=== PATIENT | female | born 1930 | race Caucasian/White ===

== ENCOUNTER 2021-03-11 17:04 | Inpatient (IN) ==
--- NOTE | 2021-03-11 18:23 | XRay Report ---
XR elbow RT min 3V routine CLINICAL HISTORY: Right elbow pain following fall. COMPARISON: None FINDINGS: Alignment of the right elbow is anatomic. No acute fracture. There is no evidence for join t effusion. IMPRESSION: No acute fracture or joint effusion of the right elbow. ACT 112: Negative or not required by law. Electronically signed by: Nishant Figueredo M.D. 03/11/2021 6:22 PM
--- NOTE | 2021-03-11 18:23 | XRay Report ---
XR shoulder RT min 2V routine CLINICAL HISTORY: Right shoulder pain following fall. COMPARISON: None FINDINGS: Alignment of the right acromioclavicular and glenohumeral joints is anatomic. Note is made of an acute impacted displaced right humeral neck fracture. The degree of displacement is difficult to assess on this examination. 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 IMPRESSION: Acute impacted displaced right humeral neck fracture. ACT 112: Negative or not required by law. Electronically signed by: Nishant Figueredo M.D. 03/11/2021 6:21 PM
--- NOTE | 2021-03-11 18:41 | XRay Report ---
XR hip RT min 2V CLINICAL HISTORY: Right leg pain following fall. COMPARISON: None FINDINGS: Note is made of an acute impacted subcapital right femoral neck fracture. Fracture is like ly mildly displaced. Penetration is suboptimal on the crosstable lateral projection. IMPRESSION: Acute impacted mildly displaced subcapital right femoral neck fracture. ACT 112: Negative or not required by law. Electronically signed by: Nishant Figueredo M.D. 03/11/2021 6:39 PM
[2021-03-11] MEDS ORDERED: MoRPHine SULFATE 4 MG/ML 1 ML CARP\\VIAL IV PRN (19:17)
[2021-03-11] MEDS ORDERED: ACETAMINOPHEN 65 ML IV ONE (19:17)
[2021-03-11] MEDS ORDERED: SODIUM CHLORIDE 0.9% 1000ML 1,000 ML IV SCH (19:30)
[2021-03-11 19:54] LABS: Basophils # (auto) 0.02 K/uL (0-0.2); Basophils % (auto) 0.1 %; Eosinophils # (auto) 0.02 K/uL (0-0.5); Eosinophils % (auto) 0.1 %; Hematocrit (blood only) 43.6 % (37-47); Hemoglobin 15.5 g/dL (12.0-16.0); Immature Granulocytes % (auto) 0.5 %; Mean Corpuscular Hemoglobin 30.6 pg (25-34); Mean Corpuscular Hgb Conc 35.6 g/dL (32-36); Mean Platelet Volume 10.4 fL (7.4-10.4); Monocytes # (auto) 1.02 K/uL (0.11-0.59); Monocytes % (auto) 5.1 %; Neutrophils # (auto) 17.61 K/uL (1.4-6.5); Neutrophils % (auto) 88.2 %; Platelet Count 254 K/uL (130-400); RDW Coefficient of Variation 13.5 % (11.5-14.5); RDW Standard Deviation 42.2 fL (36.4-46.3); Red Blood Count 5.07 M/uL (4.2-5.4); White Blood Count 19.97 K/uL (4.8-10.8)
--- NOTE | 2021-03-11 19:54 | Emergency Department Note ---
History of Present Illness General Chief complaint: Fall Stated complaint: FALL - RT SHOULDER/ELBOW PAIN - LEG WEAKNESS Time Seen by Provider: 03/11/21 19:07 History of Present Illness Maximum Pain Intensity: 7 This is an 89-year-old female presenting to the emergency department for evalu ation of injuries after a fall that occurred just prior to arrival. The patient was walking outside, which is quite common for her as she typically walks 1 mile or more on a daily basis. Evidently there was a large stick that was on the road and the patient attempted to move it. When she threw it off the road she lost her balance, and fell onto her right side arm, elbow, and hip. She was not easily able to ambulate after the injury. She did not strike her head or lose consciousness. She is not on blood thinners. No neck pain, chest pain, or abdominal pain. She rates her discomfort a 7/10. Home Medications Medication Instructions Recorded Confirmed Type atenolol 100 mg tablet 100 mg PO QPM 03/11/21 03/11/21 History atorvastatin 20 mg tablet 20 mg PO QAM 03/11/21 03/11/21 History hydrochlorothiazide 25 mg tablet 25 mg PO QPM 03/11/21 03/11/21 History levothyroxine 75 mcg tablet 75 mcg PO QAM 03/11/21 03/11/21 History Allergies Allergy/AdvReac Type Severity Reaction Status Date / Time No Known Allergies Allergy Verified 03/11/21 19:34 Past Med/Surg History Medical History Hypertension Hypothyroid Surgical History No significant past surgical history Social History Smoking Status: Never smoker Feels Safe at Home: Yes Review of Systems A total of 10 systems reviewed and were otherwise negative Physical Exam Vital Signs Vital Signs - 24 hr 03/11/21 17:10 03/11/21 19:21 Temperature 36.4 C L Temperature Source Oral Pulse Rate 61 Pulse Rate [Finger] 70 Pulse Rhythm Regular Pulse Strength Normal Respiratory Rate 20 18 Respiratory Effort / Characteristics Non-Labored Spontaneous Respiratory Depth Normal Respiratory Pattern Regular Blood Pressure 179/78 H Blood Pressure [Left Arm] 174/95 H Blood Pressure Mean 111 Blood Pressure Mean [Left Arm] 121 Blood Pressure Position Sitting Pulse Oximetry 97 94 Oxygen Delivery Method Room Air Room Air Sepsis Recent Fever Within 48 Hours No Sepsis New/Unexplained Change in Mental Status N/A Sepsis Action Taken by Nursing No Action Required VITALS: Vitals are noted on the nurse's note and reviewed by myself. Vital signs stable. GENERAL: White female who is mildly uncomfortable. She is pleasant and cooperative. HEAD: Normocephalic atraumatic. NECK: Supple without nuchal rigidity. No lymphadenopathy. No thyromegaly. Cervical spine is nontender. HEART: Regular rate and rhythm without murmurs gallops or rubs. LUNGS: Clear to auscultation bilaterally without wheezes, rales or rhonchi. No retractions or accessory muscle use. MUSCULOSKELETAL: Tenderness noted to the right arm and right hip. Decreased range of motion in these areas. Neurovascular status appears intact. Range of motion causes significant increase in discomfort when attempted. NEURO: Patient was alert and oriented to person place and time. CN II through XII grossly intact. Course Administered Medications Sodium Chloride (Nss 1000ml) 1,000 mls @ 150 mls/hr IV .[id number] EHSAN Stop: 03/12/21 02:09 Last Admin: 03/11/21 20:00 Dose: 150 mls/hr Documented by: [id number] Morphine Sulfate (Morphine Sulfate 2 Mg/Ml Carp) 2 mg IV Q1H PRN PRN Reason: Moderate Pain (Rating 3,4,5,6) Stop: 03/25/21 19:16 Last Admin: 03/11/21 20:10 Dose: 2 mg Documented by: [id number] Discontinued Medications Acetaminophen (Ofirmev) 65 mls @ 200 mls/hr IV NOW ONE; Protocol Stop: 03/11/21 19:36 Last Infusion: 03/11/21 20:14 Dose: 60 mls/hr Documented by: [id number] Admin: 03/11/21 19:50 Dose: 200 mls/hr Documented by: [id number] Medical Decision Making Differential Diagnosis Differential diagnosis includes, but is not limited to: Sprain, strain, fracture, dislocation, subluxation, contusion, and others Laboratory Data Result diagrams: 03/11/21 19:47 03/11/21 19:47 Lab Results 03/11/21 03/11/2103/11/21 Range/Units 19:19 19:19 19:47 WBC (4.8-10.8) K/uL RBC (4.2-5.4) M/uL Hgb (12.0-16.0) g/dL Hct (37-47) % MCV (80-100) fL MCH (25-34) pg MCHC (32-36) g/dL RDW Std Deviation (36.4-46.3) fL RDW Coeff of Digna (11.5-14.5) % Plt Count (130-400) K/uL MPV (7.4-10.4) fL Immature Gran % (Auto) % Neut % (Auto) % Lymph % (Auto) % [place] % (Auto) % Eos % (Auto) % Baso % (Auto) % Neut # (Auto) (1.4-6.5) K/uL Lymph # (Auto) (1.2-3.4) K/uL [place] # (Auto) (0.11-0.59) K/uL Eos # (Auto) (0-0.5) K/uL Baso # (Auto) (0-0.2) K/uL Immature Gran # (Auto) (0.00-0.02) K/uL PT (9.0-12.0) Seconds INR (0.9-1.1) APTT (21.0-31.0) Seconds PTT Ratio Sodium (136-145) mmol/L Potassium (3.5-5.1) mmol/L Chloride (98-107) mmol/L Carbon Dioxide (21-32) mmol/L Anion Gap (3-11) BUN (7-18) mg/dl Creatinine (0.6-1.2) mg/dl Est Cr Clr Drug Dosing Est GFR ( Amer) ml/min Est GFR (Non-Af Amer) ml/min BUN/Creatinine Ratio (10-20) Glucose (70-99) mg/dl Calcium (8.5-10.1) mg/dl Total Bilirubin (0.2-1) mg/dl AST (15-37) U/L ALT (12-78) U/L Alkaline Phosphatase (45-117) U/L Total Protein (6.4-8.2) gm/dl Albumin (3.4-5.0) gm/dl Globulin (2.5-4.0) gm/dl Albumin/Globulin Ratio (0.9-2) Urine Color Urine Appearance (Clear) Urine pH (4.5-7.5) Ur Specific Dexter (1.000-1.030) Urine Protein (Negative) Urine Glucose (UA) (Negative) Urine Ketones (Negative) Urine Blood (Negative) Urine Nitrite (Negative) Urine Bilirubin (Negative) Urine Urobilinogen (Negative) Ur Leukocyte Esterase (Negative) COVID-19 Eval Order Covid19 at [facility] SARS-CoV-2 (PCR) NEGATIVE (Negative) Blood Type O Positive Antibody Screen NEGATIVE 03/11/21 03/11/21 03/11/21 Range/Units 19:47 19:47 19:47 WBC 19.97 H (4.8-10.8) K/uL RBC 5.07 (4.2-5.4) M/uL Hgb 15.5 (12.0-16.0) g/dL Hct 43.6 (37-47) % MCV 86.0 (80-100) fL MCH 30.6 (25-34) pg MCHC 35.6 (32-36) g/dL RDW Std Deviation 42.2 (36.4-46.3) fL RDW Coeff of Digna 13.5 (11.5-14.5) % Plt Count 254 (130-400) K/uL MPV 10.4 (7.4-10.4) fL Immature Gran % (Auto) 0.5 % Neut % (Auto) 88.2 % Lymph % (Auto) 6.0 % [place] % (Auto) 5.1 % Eos % (Auto) 0.1 % Baso % (Auto) 0.1 % Neut # (Auto) 17.61 H (1.4-6.5) K/uL Lymph # (Auto) 1.20 (1.2-3.4) K/uL [place] # (Auto) 1.02 H (0.11-0.59) K/uL Eos # (Auto) 0.02 (0-0.5) K/uL Baso # (Auto) 0.02 (0-0.2) K/uL Immature Gran # (Auto) 0.10 H (0.00-0.02) K/uL PT 10.2 (9.0-12.0) Seconds INR 1.0 (0.9-1.1) APTT 24.1 (21.0-31.0) Seconds PTT Ratio 0.9 Sodium 135 L (136-145) mmol/L Potassium 3.5 (3.5-5.1) mmol/L Chloride 101 (98-107) mmol/L Carbon Dioxide 28 (21-32) mmol/L Anion Gap 6.0 (3-11) BUN 21 H (7-18) mg/dl Creatinine 0.82 (0.6-1.2) mg/dl Est Cr Clr Drug Dosing Not Reportable Est GFR ( Amer) 73.5 ml/min Est GFR (Non-Af Amer) 63.4 ml/min BUN/Creatinine Ratio 25.1 H (10-20) Glucose 143 H (70-99) mg/dl Calcium 9.5 (8.5-10.1) mg/dl Total Bilirubin 0.5 (0.2-1) mg/dl AST 29 (15-37) U/L ALT 47 (12-78) U/L Alkaline Phosphatase 68 (45-117) U/L Total Protein 7.8 (6.4-8.2) gm/dl Albumin 4.3 (3.4-5.0) gm/dl Globulin 3.5 (2.5-4.0) gm/dl Albumin/Globulin Ratio 1.2 (0.9-2) Urine Color Urine Appearance (Clear) Urine pH (4.5-7.5) Ur Specific Dexter (1.000-1.030) Urine Protein (Negative) Urine Glucose (UA) (Negative) Urine Ketones (Negative) Urine Blood (Negative) Urine Nitrite (Negative) Urine Bilirubin (Negative) Urine Urobilinogen (Negative) Ur Leukocyte Esterase (Negative) COVID-19 Eval Order SARS-CoV-2 (PCR) (Negative) Blood Type Antibody Screen 03/11/21 Range/Units 20:07 WBC (4.8-10.8) K/uL RBC (4.2-5.4) M/uL Hgb (12.0-16.0) g/dL Hct (37-47) % MCV (80-100) fL MCH (25-34) pg MCHC (32-36) g/dL RDW Std Deviation (36.4-46.3) fL RDW Coeff of Digna (11.5-14.5) % Plt Count (130-400) K/uL MPV (7.4-10.4) fL Immature Gran % (Auto) % Neut % (Auto) % Lymph % (Auto) % [place] % (Auto) % Eos % (Auto) % Baso % (Auto) % Neut # (Auto) (1.4-6.5) K/uL Lymph # (Auto) (1.2-3.4) K/uL [place] # (Auto) (0.11-0.59) K/uL Eos # (Auto) (0-0.5) K/uL Baso # (Auto) (0-0.2) K/uL Immature Gran # (Auto) (0.00-0.02) K/uL PT (9.0-12.0) Seconds INR (0.9-1.1) APTT (21.0-31.0) Seconds PTT Ratio Sodium (136-145) mmol/L Potassium (3.5-5.1) mmol/L Chloride (98-107) mmol/L Carbon Dioxide (21-32) mmol/L Anion Gap (3-11) BUN (7-18) mg/dl Creatinine (0.6-1.2) mg/dl Est Cr Clr Drug Dosing Est GFR ( Amer) ml/min Est GFR (Non-Af Amer) ml/min BUN/Creatinine Ratio (10-20) Glucose (70-99) mg/dl Calcium (8.5-10.1) mg/dl Total Bilirubin (0.2-1) mg/dl AST (15-37) U/L ALT (12-78) U/L Alkaline Phosphatase (45-117) U/L Total Protein (6.4-8.2) gm/dl Albumin (3.4-5.0) gm/dl Globulin (2.5-4.0) gm/dl Albumin/Globulin Ratio (0.9-2) Urine Color Yellow Urine Appearance Clear (Clear) Urine pH 6.0 (4.5-7.5) Ur Specific Dexter 1.015 (1.000-1.030) Urine Protein Negative (Negative) Urine Glucose (UA) Negative (Negative) Urine Ketones Negative (Negative) Urine Blood Negative (Negative) Urine Nitrite Negative (Negative) Urine Bilirubin Negative (Negative) Urine Urobilinogen Negative (Negative) Ur Leukocyte Esterase Negative (Negative) COVID-19 Eval Order SARS-CoV-2 (PCR) (Negative) Blood Type Antibody Screen Imaging Data Radiologist's Impression: Elbow X-Ray 03/11/21 17:14 XR elbow RT min 3V routine CLINICAL HISTORY: Right elbow pain following fall. COMPARISON: None FINDINGS: Alignment of the right elbow is anatomic. No acute fracture. There is no evidence for joint effusion. IMPRESSION: No acute fracture or joint effusion of the right elbow. ACT 112: Negative or not required by law. Electronically signed by: Nishant Figueredo M.D. 03/11/2021 6:22 PM Hip X-Ray 03/11/21 17:14 XR hip RT min 2V CLINICAL HISTORY: Right leg pain following fall. COMPARISON: None FINDINGS: Note is made of an acute impacted subcapital right femoral neck fracture. Fracture is likely mildly displaced. Penetration is suboptimal on the crosstable lateral projection. IMPRESSION: Acute impacted mildly displaced subcapital right femoral neck fracture. ACT 112: Negative or not required by law. Electronically signed by: Nishant Figueredo M.D. 03/11/2021 6:39 PM Shoulder X-Ray 03/11/21 17:14 XR shoulder RT min 2V routine CLINICAL HISTORY: Right shoulder pain following fall. COMPARISON: None FINDINGS: Alignment of the right acromioclavicular and glenohumeral joints is anatomic. Note is made of an acute impacted displaced right humeral neck fracture. The degree of displacement is difficult to assess on this examination. 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 IMPRESSION: Acute impacted displaced right humeral neck fracture. ACT 112: Negative or not required by law. Electronically signed by: Nishant Figueredo M.D. 03/11/2021 6:21 PM Chest X-Ray 03/11/21 19:18 XR chest 1V portable CLINICAL HISTORY: fall pain in right shoulder and hip. TECHNIQUE: Single frontal radiograph of the chest was obtained. Comparison: None available at the time of this dictation. FINDINGS: No lines and tubes are seen. The cardiomediastinal silhouette is normal. The lungs are clear. No evidence of pleural effusion or pneumothorax. Partial visualization of right humeral fracture, better seen on dedicated shoulder radiographs performed same day. IMPRESSION: No acute chest disease. Please see dedicated shoulder radiographs for findings of right humeral fracture. ACT 112: Negative or not required by law. Electronically signed by: Ravinder Villar M.D. 03/11/2021 8:41 PM ECG Data Attestation: I personally reviewed and interpreted this ECG as follows: Additional Comments: Normal sinus rhythm @70 bpm Moderate voltage criteria for LVH, may be normal variant Nonspecific ST & T wave abnormality No previous ECGs available MDM Narrative Physical exam and history were performed. Nursing notes, EMR, and Medication List were personally reviewed. Patient appears to have suffered mechanical fall with subsequent injuries to her right arm and right leg. The patient presents during a period of high ER volume and acuity. Nursing protocol orders have been performed and x-rays were available for my review upon patient arrival to her ER bed. The patient does appear to have a right humeral neck fracture as well as a proximal right femur fracture. IV access was established and labs were obtained. Covid swab was performed. The patient was given IV morphine for pain control and was gently hydrated with normal saline. Catheter was placed. The patient's blood work is as above and was reviewed. Her white blood cell count is just under 20,000 which is felt to be from stress and her injuries. She is not anemic with a hemoglobin of 15.5. INR is 1.0. Glucose is 143. Nguyen saminases are not diagnostic. Urine is without evidence of infection. She is blood type O+. Covid is negative. Case was discussed with the on-call orthopedist, Dr. Whitaker, who was able to review the images. Dr. Whitaker and his team will certainly follow with the patient. The case was discussed with the on-call hospitalist team who will evaluate the patient. Please see the hospitalist and orthopedic dictations for further patient course, plan, disposition. The chart was completed utilizing [employer] Voice Recognition Software. Grammatical errors, random word insertions, pronoun errors, and incomplete sentences are an occasional consequence of this system due to software limit ations, ambient noise, and hardware issues. Any formal questions or concerns about the content, text, or information contained within the body of this dictation should be directly addressed to the provider for clarification. . Impression & Plan Fall, Humerus fracture, Femur fracture, right Discharge Plan Visit Data Chief Complaint: Fall Stated Complaint: FALL - RT SHOULDER/ELBOW PAIN - LEG WEAKNESS ED Provider: Isaac Saldaña ED Midlevel Provider: Dwaine Antonio Discharge Problem: Fall, Humerus fracture, Femur fracture, right Patient Disposition: Home - Self-Care Condition: Good Forms Stand Alone Forms: [facility], Virtual Emergency Department, Important Visit Information Prescriptions Prescriptions: No Action atorvastatin 20 mg tablet 20 mg PO QAM RF: 0 atenolol 100 mg tablet 100 mg PO QPM RF: 0 levothyroxine 75 mcg tablet 75 mcg PO QAM RF: 0 hydrochlorothiazide 25 mg tablet 25 mg PO QPM RF: 0 Referrals Referrals: Susie White MD [Primary Care Provider] - Discharge Problem: Femur fracture, right Qualifiers: Encounter type: initial encounter
[2021-03-11 20:07] LABS: Partial Thromboplastin Ratio 0.9; Partial Thromboplastin Time 24.1 Seconds (21.0-31.0); Prothrombin Time 10.2 Seconds (9.0-12.0)
[2021-03-11] MEDS: MoRPHine SULFATE 2 MG/ML CARP IV PRN (20:10)
[2021-03-11 20:13] LABS: Alanine Aminotransferase 47 U/L (12-78); Albumin Level 4.3 gm/dl (3.4-5.0); Aspartate Aminotransferase 29 U/L (15-37); BUN Creatinine Ratio 25.1 (10-20); Blood Urea Nitrogen 21 mg/dl (7-18); Calcium 9.5 mg/dl (8.5-10.1); Carbon Dioxide 28 mmol/L (21-32); Chloride 101 mmol/L (98-107); Est GFR (African American) 73.5 ml/min; Est GFR (Non-African American) 63.4 ml/min; Glucose 143 mg/dl (70-99); Potassium 3.5 mmol/L (3.5-5.1); Sodium 135 mmol/L (136-145)
[2021-03-11 20:16] LABS: Albumin Globulin Ratio 1.2 (0.9-2); Alkaline Phosphatase 68 U/L (45-117); Bilirubin,Total 0.5 mg/dl (0.2-1); Globulin 3.5 gm/dl (2.5-4.0); Total Protein 7.8 gm/dl (6.4-8.2)
[2021-03-11 20:19] LABS: Appearance Urine Clear (Clear); Bilirubin Urine Negative (Negative); Blood Urine Negative (Negative); Color Urine Yellow; Glucose Urine UA Negative (Negative); Ketones Urine Negative (Negative); Leukocyte Esterase Urine Negative (Negative); Nitrite Urine Negative (Negative); Protein Urine Negative (Negative); Specific Gravity Urine 1.015 (1.000-1.030); Urobilinogen Urine Negative (Negative)
--- NOTE | 2021-03-11 20:43 | XRay Report ---
XR chest 1V portable CLINICAL HISTORY: fall pain in right shoulder and hip. TECHNIQUE: Single frontal radiograph of the chest was obtained. Comparison: None available at the time of this dictation. FINDINGS: No lines and tubes are seen. The cardiomediastinal silhouette is normal. The lungs are clear. No evid ence of pleural effusion or pneumothorax. Partial visualization of right humeral fracture, better see n on dedicated shoulder radiographs performed same day. IMPRESSION: No acute chest disease. Please see dedicated shoulder radiographs for findings of right humeral fract ure. ACT 112: Negative or not required by law. Electronically signed by: Ravinder Villar M.D. 03/11/2021 8:41 PM
--- NOTE | 2021-03-11 21:32 | History & Physical Report ---
Date of Service March 11, 2021 Assessment & Plan (1) Fall: Plan: Kaity Moran is a 89y/o female with past medical history significant for hypertension, hypothyroidism, hyperlipidemia; who presented to the emergency department following fall from standing height causing fracture of humerus and femur. Humerus/femoral fracture: -Shoulder x-ray demonstrating right acute impacted right humeral neck fracture -Hip x-ray demonstrating right acute impacted subcapital femoral neck fracture -Orthopedic surgery consulted in ED: No emergent surgery at this time -Will maintain patient as n.p.o. overnight -Patient would benefit from DEXA scan in the future Falls: -Seemingly mechanical fall at this time -Patient with previous imbalance history upon review of PCP records -Previously had utilized PT for gait training -If nonoperative route is selected would benefit from prolonged therapy with gait training following fracture healing Hypertension: -Home regimen of hydrochlorothiazide 25mg and atenolol 100mg Hypothyroidism: -Home regimen of Synthroid 75mcg Hyperlipidemia: -Home regimen of atorvastatin 20mg Diet: NPO for potential procedure in a.m. CODE STATUS: DNI DVT prophylaxis: Deferred chemical prophylaxis; SCDs (2) Humerus fracture: (3) Femur fracture, right: (4) Hypertension: (5) Hypothyroid: History of Present Illness Primary Care Provider: Susie White MD Kaity Moran is a 89y/o female with past medical history significant for hypertension, hypothyroidism, hyperlipidemia; who presented to the emergency department following fall from standing height causing fracture of humerus and femur. Earlier this evening was walking with daughter when picked up a stick from the ground upon throwing a stick from her right side she seemingly lost bal ance from standing height and landed directly on her right side. Did not hit her head did not lose consciousness remembers the entirety of the event. Has had a long standing history of difficulty with maintaining her balance, however did not feel lightheaded when this was going on nor have any spinning, changes of vision, or dizziness. Previously had worked with physical therapy on gait training and balance training at the recommendation of her PCP many years ago; this seemingly had worked for some time, and was able to increase her overall level activity. Over the last several weeks have been walking easily a mile or more a day without difficulty or falls. Had also recently discussed need for a DEXA scan with her PCP as she had not had one in many years. Allergies Allergy/AdvReac Type Severity Reaction Status Date / Time No Known Allergies Allergy Verified 03/11/21 19:34 Home Medications Medication Instructions Recorded Confirmed Type atenolol 100 mg tablet 100 mg PO QPM 03/11/21 03/11/21 History atorvastatin 20 mg tablet 20 mg PO QAM 03/11/21 03/11/21 History hydrochlorothiazide 25 mg tablet 25 mg PO QPM 03/11/21 03/11/21 History levothyroxine 75 mcg tablet 75 mcg PO QAM 03/11/21 03/11/21 History oxycodone 5 mg tablet 5 - 10 mg PO Q4H PRN #30 tab 03/14/21 Rx Past Med/Surg History Medical History (Updated 03/12/21 @ 13:12 by Joni Damian MD) Dyslipidemia Hypertension Hypothyroid Surgical History No significant past surgical history Social History Smoking Status: Never smoker Hx Alcohol Use: No Hx Substance Use: No Preferred Language: Turkish Communication Ability: Effective 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 Beliefs That Will Affect Care: None marital status: / Current Living Situation: Alone Current Living Situation Comment: Apartment with steps Feels Safe at Home: Yes Assistive Devices: Denture - Upper, Denture - Lower, Glasses and Walker Review of Systems Review of Systems: All systems reviewed & are unremarkable except as noted in HPI & below Physical Exam Constitutional: WD/WN, vitals as above Eyes: PERRL, conjunctivae normal, anicteric sclerae Respiratory: normal respiratory effort, lungs clear to auscultation Auscultation: no crackles, no rales, no rhonchi and no wheezes Cardiovascular: Rate/Rhythm: regular rate and regular rhythm Heart Sounds: no gallop, no murmur and no cardiac rub Vessels: normal peripheral pulses; no JVD Extremities: no edema Musculoskeletal: Shoulder: + deformity; no skin erythema and no ecchymosis Hip: + deformity; no skin erythema and no ecchymosis Skin: no rashes, warm and dry Trauma: no abrasion, no contusion and no hematoma Neurologic: PERRL, EOMI, accommodation nl, no face palsy, no dysarthria CN's II-XI intact bilaterally Psychiatric: Orientation: alert and oriented x 3 Results & Data Results & Data ([facility]) Vital Signs (Past 12 Hours) Vital Signs Temp Pulse Pulse Resp BP BP Pulse Ox 03/11/21 21:27 65 145/81 H 94 03/11/21 19:21 70 18 174/95 H 94 03/11/21 17:10 36.4 C L 61 20 179/78 H 97 Laboratory Results 03/11/21 03/11/21 03/11/21 Range/Units 20:07 19:47 19:47 WBC (4.8-10.8) K/uL RBC (4.2-5.4) M/uL Hgb (12.0-16.0) g/dL Hct (37-47) % MCV (80-100) fL MCH (25-34) pg MCHC (32-36) g/dL RDW Std Deviation (36.4-46.3) fL RDW Coeff of Digna (11.5-14.5) % Plt Count (130-400) K/uL MPV (7.4-10.4) fL Immature Gran % (Auto) % Neut % (Auto) % Lymph % (Auto) % Oliver % (Auto) % Eos % (Auto) % Baso % (Auto) % Neut # (Auto) (1.4-6.5) K/uL Lymph # (Auto) (1.2-3.4) K/uL Oliver # (Auto) (0.11-0.59) K/uL Eos # (Auto) (0-0.5) K/uL Baso # (Auto) (0-0.2) K/uL Immature Gran # (Auto) (0.00-0.02) K/uL PT 10.2 (9.0-12.0) Seconds INR 1.0 (0.9-1.1) APTT 24.1 (21.0-31.0) Seconds PTT Ratio 0.9 Sodium 135 L (136-145) mmol/L Potassium 3.5 (3.5-5.1) mmol/L Chloride 101 (98-107) mmol/L Carbon Dioxide 28 (21-32) mmol/L Anion Gap 6.0 (3-11) BUN 21 H (7-18) mg/dl Creatinine 0.82 (0.6-1.2) mg/dl Est Cr Clr Drug Dosing Not Reportable Est GFR ( Amer) 73.5 ml/min Est GFR (Non-Af Amer) 63.4 ml/min BUN/Creatinine Ratio 25.1 H (10-20) Glucose 143 H (70-99) mg/dl Calcium 9.5 (8.5-10.1) mg/dl Total Bilirubin 0.5 (0.2-1) mg/dl AST 29 (15-37) U/L ALT 47 (12-78) U/L Alkaline Phosphatase 68 (45-117) U/L Total Protein 7.8 (6.4-8.2) gm/dl Albumin 4.3 (3.4-5.0) gm/dl Globulin 3.5 (2.5-4.0) gm/dl Albumin/Globulin Ratio 1.2 (0.9-2) Urine Color Yellow Urine Appearance Clear (Clear) Urine pH 6.0 (4.5-7.5) Ur Specific [place] 1.015 (1.000-1.030) Urine Protein Negative (Negative) Urine Glucose (UA) Negative (Negative) Urine Ketones Negative (Negative) Urine Blood Negative (Negative) Urine Nitrite Negative (Negative) Urine Bilirubin Negative (Negative) Urine Urobilinogen Negative (Negative) Ur Leukocyte Esterase Negative (Negative) COVID-19 Eval Order SARS-CoV-2 (PCR) (Negative) Blood Type Antibody Screen 03/11/21 03/11/21 03/11/21 Range/Units 19:47 19:47 19:19 WBC 19.97 H (4.8-10.8) K/uL RBC 5.07 (4.2-5.4) M/uL Hgb 15.5 (12.0-16.0) g/dL Hct 43.6 (37-47) % MCV 86.0 (80-100) fL MCH 30.6 (25-34) pg MCHC 35.6 (32-36) g/dL RDW Std Deviation 42.2 (36.4-46.3) fL RDW Coeff of Digna 13.5 (11.5-14.5) % Plt Count 254 (130-400) K/uL MPV 10.4 (7.4-10.4) fL Immature Gran % (Auto) 0.5 % Neut % (Auto) 88.2 % Lymph % (Auto) 6.0 % Oliver % (Auto) 5.1 % Eos % (Auto) 0.1 % Baso % (Auto) 0.1 % Neut # (Auto) 17.61 H (1.4-6.5) K/uL Lymph # (Auto) 1.20 (1.2-3.4) K/uL Oliver # (Auto) 1.02 H (0.11-0.59) K/uL Eos # (Auto) 0.02 (0-0.5) K/uL Baso # (Auto) 0.02 (0-0.2) K/uL Immature Gran # (Auto) 0.10 H (0.00-0.02) K/uL PT (9.0-12.0) Seconds INR (0.9-1.1) APTT (21.0-31.0) Seconds PTT Ratio Sodium (136-145) mmol/L Potassium (3.5-5.1) mmol/L Chloride (98-107) mmol/L Carbon Dioxide (21-32) mmol/L Anion Gap (3-11) BUN (7-18) mg/dl Creatinine (0.6-1.2) mg/dl Est Cr Clr Drug Dosing Est GFR ( Amer) ml/min Est GFR (Non-Af Amer) ml/min BUN/Creatinine Ratio (10-20) Glucose (70-99) mg/dl Calcium (8.5-10.1) mg/dl Total Bilirubin (0.2-1) mg/dl AST (15-37) U/L ALT (12-78) U/L Alkaline Phosphatase (45-117) U/L Total Protein (6.4-8.2) gm/dl Albumin (3.4-5.0) gm/dl Globulin (2.5-4.0) gm/dl Albumin/Globulin Ratio (0.9-2) Urine Color Urine Appearance (Clear) Urine pH (4.5-7.5) Ur Specific [place] (1.000-1.030) Urine Protein (Negative) Urine Glucose (UA) (Negative) Urine Ketones (Negative) Urine Blood (Negative) Urine Nitrite (Negative) Urine Bilirubin (Negative) Urine Urobilinogen (Negative) Ur Leukocyte Esterase (Negative) COVID-19 Eval Order SARS-CoV-2 (PCR) NEGATIVE (Negative) Blood Type O Positive Antibody Screen NEGATIVE 03/11/21 Range/Units 19:19 WBC (4.8-10.8) K/uL RBC (4.2-5.4) M/uL Hgb (12.0-16.0) g/dL Hct (37-47) % MCV (80-100) fL MCH (25-34) pg MCHC (32-36) g/dL RDW Std Deviation (36.4-46.3) fL RDW Coeff of Digna (11.5-14.5) % Plt Count (130-400) K/uL MPV (7.4-10.4) fL Immature Gran % (Auto) % Neut % (Auto) % Lymph % (Auto) % Oliver % (Auto) % Eos % (Auto) % Baso % (Auto) % Neut # (Auto) (1.4-6.5) K/uL Lymph # (Auto) (1.2-3.4) K/uL Oliver # (Auto) (0.11-0.59) K/uL Eos # (Auto) (0-0.5) K/uL Baso # (Auto) (0-0.2) K/uL Immature Gran # (Auto) (0.00-0.02) K/uL PT (9.0-12.0) Seconds INR (0.9-1.1) APTT (21.0-31.0) Seconds PTT Ratio Sodium (136-145) mmol/L Potassium (3.5-5.1) mmol/L Chloride (98-107) mmol/L Carbon Dioxide (21-32) mmol/L Anion Gap (3-11) BUN (7-18) mg/dl Creatinine (0.6-1.2) mg/dl Est Cr Clr Drug Dosing Est GFR ( Amer) ml/min Est GFR (Non-Af Amer) ml/min BUN/Creatinine Ratio (10-20) Glucose (70-99) mg/dl Calcium (8.5-10.1) mg/dl Total Bilirubin (0.2-1) mg/dl AST (15-37) U/L ALT (12-78) U/L Alkaline Phosphatase (45-117) U/L Total Protein (6.4-8.2) gm/dl Albumin (3.4-5.0) gm/dl Globulin (2.5-4.0) gm/dl Albumin/Globulin Ratio (0.9-2) Urine Color Urine Appearance (Clear) Urine pH (4.5-7.5) Ur Specific [place] (1.000-1.030) Urine Protein (Negative) Urine Glucose (UA) (Negative) Urine Ketones (Negative) Urine Blood (Negative) Urine Nitrite (Negative) Urine Bilirubin (Negative) Urine Urobilinogen (Negative) Ur Leukocyte Esterase (Negative) COVID-19 Eval Order Covid19 at [facility] SARS-CoV-2 (PCR) (Negative) Blood Type Antibody Screen Diagnostic Findings Impressions Elbow X-Ray 03/11/21 17:14 XR elbow RT min 3V routine CLINICAL HISTORY: Right elbow pain following fall. COMPARISON: None FINDINGS: Alignment of the right elbow is anatomic. No acute fracture. There is no evidence for joint effusion. IMPRESSION: No acute fracture or joint effusion of the right elbow. ACT 112: Negative or not required by law. Electronically signed by: Nishant Figueredo M.D. 03/11/2021 6:22 PM Hip X-Ray 03/11/21 17:14 XR hip RT min 2V CLINICAL HISTORY: Right leg pain following fall. COMPARISON: None FINDINGS: Note is made of an acute impacted subcapital right femoral neck fracture. Fracture is likely mildly displaced. Penetration is suboptimal on the crosstable lateral projection. IMPRESSION: Acute impacted mildly displaced subcapital right femoral neck fracture. ACT 112: Negative or not required by law. Electronically signed by: Nishant Figueredo M.D. 03/11/2021 6:39 PM Shoulder X-Ray 03/11/21 17:14 XR shoulder RT min 2V routine CLINICAL HISTORY: Right shoulder pain following fall. COMPARISON: None FINDINGS: Alignment of the right acromioclavicular and glenohumeral joints is anatomic. Note is made of an acute impacted displaced right humeral neck fracture. The degree of displacement is difficult to assess on this examination. 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 IMPRESSION: Acute impacted displaced right humeral neck fracture. ACT 112: Negative or not required by law. Electronically signed by: Nishant Figueredo M.D. 03/11/2021 6:21 PM Chest X-Ray 03/11/21 19:18 XR chest 1V portable CLINICAL HISTORY: fall pain in right shoulder and hip. TECHNIQUE: Single frontal radiograph of the chest was obtained. Comparison: None available at the time of this dictation. FINDINGS: No lines and tubes are seen. The cardiomediastinal silhouette is normal. The lungs are clear. No evidence of pleural effusion or pneumothorax. Partial visualization of right humeral fracture, better seen on dedicated shoulder radiographs performed same day. IMPRESSION: No acute chest disease. Please see dedicated shoulder radiographs for findings of right humeral fracture. ACT 112: Negative or not required by law. Electronically signed by: Ravinder Villar M.D. 03/11/2021 8:41 PM Medications Administered Home Medication List Medication Instructions Recorded atenolol 100 mg tablet 100 mg PO QPM 03/11/21 atorvastatin 20 mg tablet 20 mg PO QAM 03/11/21 hydrochlorothiazide 25 mg tablet 25 mg PO QPM 03/11/21 levothyroxine 75 mcg tablet 75 mcg PO QAM 03/11/21 Supervising Physician Co-Signing Physician Notes Attending addendum: I have physically seen this patient, have supervised the medical residents activities, and agree with the H&P unless as otherwise noted. Assessment and Plan: Right humerus and femoral neck fracture status post fall- N.p.o. after midnight Orthopedic surgery consult Geriatric hip fracture protocol order set Pain management Hypertension- Continue atenolol with hold parameters Hold HCTZ while in hospital Hypothyroidism- Continue levothyroxine 75 mcg daily Remaining orders and notations as noted Resident Activity Tracking Resident Involvement: Resident Care Provided Care Provided: Adult Hospital Medicine (1) Femur fracture, right Encounter type: initial encounter
[2021-03-11] MEDS: ATENOLOL 50 MG TABLET PO SCH (21:35)
[2021-03-11] MEDS: hydroCHLOROthiazide 25 MG TAB PO SCH (21:35)
[2021-03-12] MEDS: MoRPHine SULFATE 2 MG/ML CARP IV PRN ×4 (00:15→22:13)
[2021-03-12] MEDS: LEVOTHYROXINE SODIUM 75 MCG TABLET PO SCH (05:55)
[2021-03-12 07:01] LABS: Basophils # (auto) 0.01 K/uL (0-0.2); Basophils % (auto) 0.1 %; Hematocrit (blood only) 35.9 % (37-47); Hemoglobin 12.2 g/dL (12.0-16.0); Immature Granulocytes # (auto) 0.03 K/uL (0.00-0.02); Immature Granulocytes % (auto) 0.3 %; Lymphocytes # (auto) 1.41 K/uL (1.2-3.4); Lymphocytes % (auto) 12.7 %; Mean Corpuscular Hemoglobin 29.2 pg (25-34); Mean Corpuscular Volume 85.9 fL (80-100); Mean Platelet Volume 10.4 fL (7.4-10.4); Monocytes % (auto) 7.2 %; Neutrophils # (auto) 8.85 K/uL (1.4-6.5); Neutrophils % (auto) 79.7 %; Platelet Count 224 K/uL (130-400); RDW Coefficient of Variation 13.5 % (11.5-14.5); RDW Standard Deviation 42.4 fL (36.4-46.3); Red Blood Count 4.18 M/uL (4.2-5.4)
[2021-03-12 07:09] LABS: BUN Creatinine Ratio 23.9 (10-20); Calcium 8.8 mg/dl (8.5-10.1); Est GFR (Non-African American) 76.8 ml/min; Potassium 3.5 mmol/L (3.5-5.1)
--- NOTE | 2021-03-12 08:18 | Hospitalist Progress Note ---
Date of Service March 12, 2021 Assessment & Plan (1) Fall: Plan: Kaity Moran is a 89y/o female with past medical history significant for hypertension, hypothyroidism, hyperlipidemia; who presented to the emergency department following fall from standing height causing fracture of humerus and femur. Humerus/femoral fracture: -Shoulder x-ray demonstrating right acute impacted right humeral neck fracture -Hip x-ray demonstrating right acute impacted subcapital femoral neck fracture -Orthopedic surgery consulted: - recommend bipolar hemiarthroplasty for femur fx - plan for OR 03/12 - Humerus fx: nonoperative management for this at this time - shoulder immobilizer. - nonweightbearing to the right upper extremity. May do light elbow wrist and hand range of motion. - new x-rays in 2 weeks. -Patient is NPO pending possible intervention -Serum vitamin D level of 39.8 -Patient would benefit from DEXA scan in the future EKG abnormalities: - EKG on admission with NSR but notable for ST&T wave abnormalities on anterior leads - Has not had CP or cardiac-related complaints, hemodynamically stable - However, per discussion with anesthesia, will order repeat EKG as well as troponin for further evaluation pre-operatively - Continue to monitor Falls: -Seemingly mechanical fall -Patient with previous imbalance history upon review of PCP records -Previously had utilized PT for gait training -PT/OT ordered for eval/treat after surgery Hypertension: -Home regimen of hydrochlorothiazide 25mg and atenolol 100mg Hypothyroidism: -Home regimen of Synthroid 75mcg Hyperlipidemia: -Home regimen of atorvastatin 20mg Diet: NPO for potential procedure DVT prophylaxis: Deferred chemical prophylaxis; SCDs Dispo: MedSurg CODE STATUS: DNR/DNI (2) Humerus fracture: (3) Femur fracture, right: (4) Hypertension: (5) Hypothyroid: Admission and Anticipated Discharge Date Admission Date: March 11, 2021 Supervising Physician Co-Signing Physician Notes Resident Physician Supervision Note: I independently interviewed and examined the patient and verified the vivar history and physical, reviewed labs and image studies and agree with resident Reji Garcia findings and care plan. Subjective No acute events overnight. Patient's pain is well controlled. She reports no significant symptoms. Denies fever, chills, nausea, vomiting, shortness of breath, chest pain, palpitations, neurologic deficits, weakness, numbness, tingling. Review of Systems Review of Systems: Per subjective Physical Exam Physical Exam: GENERAL: A&Ox3. NAD. CHEST/LUNGS: CTAB A/P. No crackles, wheezes, rales, rhonchi. HEART: RRR. No m/g/r. No carotid bruits. EXTREMITIES: No cyanosis, no clubbing, no edema SKIN: Warm and dry. No rashes or lesions. PSYCHIATRIC: Euthymic affect, no SI, no pressured speech, no hallucinations NEUROLOGIC: No FND. CN II-XII grossly intact. Results & Data Results & Data ([facility]) Vital Signs (Past 12 Hours) Vital Signs Temp Pulse Resp BP Pulse Ox 03/12/21 07:24 36.5 C 58 L 14 116/77 97 03/11/21 23:45 36.8 C 70 18 151/69 H 94 03/11/21 23:13 65 143/79 H 94 03/11/21 21:27 65 145/81 H 94 Resident Activity Tracking Resident Involvement: Resident Care Provided Care Provided: Adult Hospital Medicine (1) Femur fracture, right Encounter type: initial encounter
--- NOTE | 2021-03-12 08:37 | CT Scan Report ---
CT hip RT wo con CLINICAL HISTORY: Evaluate fracture. COMPARISON STUDY: Radiograph 03/11/2021. TECHNIQUE: Axial images of the right hip were obtained without IV contrast. Sagittal and coronal daniela nstructions were viewed. Automated exposure control was utilized for the study. A dose lowering tech nique was utilized adhering to the principles of ALARA. FINDINGS: Note is made of an acute impacted subcapital right femoral neck fracture. Fracture is essen tially nondisplaced. No additional fractures are identified. No suspicious osseous lesions are noted. No significant abnormalities identified within visualized portions of the right hemipelvis. There is mild joint space narrowing and osteophytosis of the right hip. IMPRESSION: Acute impacted essentially nondisplaced subcapital right femoral neck fracture. ACT 112: Negative or not required by law. Electronically signed by: Nishant Figueredo M.D. 03/12/2021 8:36 AM
[2021-03-12] MEDS: ATORVASTATIN 20 MG TAB PO SCH (09:23)
--- NOTE | 2021-03-12 09:23 | XRay Report ---
XR hip 1V RT w pelvis CLINICAL HISTORY: hip fracture, needs repeat lateral COMPARISON STUDY: Right hip 03/11/2021. FINDINGS: No change in the impacted subcapital right femoral neck fracture. No dislocation. The visua lized pelvic bones and left hip are intact. IMPRESSION: No change in the impacted right subcapital femoral neck fracture. ACT 112: Negative or not required by law. Electronically signed by: Joni Hairston M.D. 03/12/2021 9:22 AM
--- NOTE | 2021-03-12 09:57 | Orthopedic Consultation ---
Date of Consultation March 12, 2021 Assessment & Plan (1) Femur fracture, right: Patient has a mildly displaced and impacted femoral neck fracture. Treatment options discussed with the patient and recommend surgical intervention. Given the amount of displacement would recommend bipolar h emiarthroplasty. Risks, benefits, alternatives discussed with the patient and she would like to proceed with surgery. Case reviewed with Dr. Ibarra, plan will be for the OR today. He will discuss surgery with her further, including potential risks, benefits, and alternatives. All questions answered. (2) Humerus fracture: Patient has a mildly displaced proximal humerus fracture. Discussed nonoperative management for this at this time. Will get into a shoulder immobilizer. Patient is to be nonweightbearing to the right upper extremity. May do light elbow wrist and hand range of motion. We will get new x-rays in 2 weeks. History of Present Illness Reason for Consultation: Right proximal humerus fracture and right femoral neck fracture Requesting Physician: Dr. Susie White Attending Physician: Susie White MD History of Present Illness 89-year-old female with past medical history significant for hypertension and h ypothyroidism, as well as frequent falls presented to the emergency room after suffering a mechanical fall. She was walking with her daughter on a [place] and she apparently lost her balance and fell. She did not hit her head or lose consciousness. At baseline patient is independent, lives alone. Currently she reports pain to her right shoulder right elbow, as well as her right hip. Patient denies headaches, sweats, fevers, chills, double vision, blurred vision, cough, sore throat, dysphagia, chest pain, sob, wheezing, n/v/d/c, numbness, tingling, fatigue, urinary symptoms, mood disorders. ROS positive for right hip and shoulder pain and stiffness. Allergies Allergy/AdvReac Type Severity Reaction Status Date / Time No Known Allergies Allergy Verified 03/11/21 19:34 Home Medications Medication Instructions Recorded Confirmed Type atenolol 100 mg tablet 100 mg PO QPM 03/11/21 03/11/21 History atorvastatin 20 mg tablet 20 mg PO QAM 03/11/21 03/11/21 History hydrochlorothiazide 25 mg tablet 25 mg PO QPM 03/11/21 03/11/21 History levothyroxine 75 mcg tablet 75 mcg PO QAM 03/11/21 03/11/21 History Patient History Medical History Hypertension Hypothyroid Surgical History No significant past surgical history Social History Smoking Status: Never smoker Hx Alcohol Use: No Hx Substance Use: No Preferred Language: Japanese Communication Ability: Effective Fuse Spooler Required: No Beliefs That Will Affect Care: None Current Living Situation: Alone Current Living Situation Comment: Apartment with steps Other Information That Helps Us Care for You: No Feels Safe at Home: Yes Safety Concerns: Feels Safe At This Time Assistive Devices: None Review of Systems Review of Systems: All systems reviewed & are unremarkable except as noted in HPI & below Physical Exam Constitutional: WD/WN, vitals as above Eyes: PERRL, conjunctivae normal, anicteric sclerae Respiratory: normal respiratory effort; no respiratory distress Cardiovascular: Rate/Rhythm: regular rate and regular rhythm Musculoskeletal: Right Upper extremity: Tenderness proximal aspect of upper arm. Painful range of motion passively to her shoulder. Sensation the lateral upper arm is intact. Painful elbow range of motion passively and actively. Diffuse tenderness. There is an abrasion to her right elbow. Fingers are mobile. Has good project management strength. Distally neurovascular status and sensation intact. Right hip: Mild tenderness upper thigh. She has pain with logroll. Toes are mobile. No calf tenderness. Distally neurovascular status and sensation intact. Skin: no rashes, warm and dry Neurologic: patellar DTR's 2+ bilat, sensation intact Psychiatric: A+Ox3, euthymic affect Results & Data ([facility]) Vital Signs (Past 12 Hours) Vital Signs Temp Pulse Resp BP Pulse Ox 03/12/21 07:24 36.5 C 58 L 14 116/77 97 03/11/21 23:45 36.8 C 70 18 151/69 H 94 03/11/21 23:13 65 143/79 H 94 Diagnostic Findings XR hip RT min 2V CLINICAL HISTORY: Right leg pain following fall. COMPARISON: None FINDINGS: Note is made of an acute impacted subcapital right femoral neck fracture. Fracture is likely mildly displaced. Penetration is suboptimal on the crosstable lateral projection. IMPRESSION: Acute impacted mildly displaced subcapital right femoral neck fracture. XR shoulder RT min 2V routine CLINICAL HISTORY: Right shoulder pain following fall. COMPARISON: None FINDINGS: Alignment of the right acromioclavicular and glenohumeral joints is anatomic. Note is made of an acute impacted displaced right humeral neck fracture. The degree of displacement is difficult to assess on this examination. 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 IMPRESSION: Acute impacted displaced right humeral neck fracture. XR elbow RT min 3V routine CLINICAL HISTORY: Right elbow pain following fall. COMPARISON: None FINDINGS: Alignment of the right elbow is anatomic. No acute fracture. There is no evidence for joint effusion. IMPRESSION: No acute fracture or joint effusion of the right elbow. (1) Humerus fracture Encounter type: initial encounter Humerus Location: proximal Fracture type: closed Laterality: right (2) Femur fracture, right Encounter type: initial encounter Femur location: neck, unspecified portion
--- NOTE | 2021-03-12 15:10 | Anesthesiology Consultation ---
Date of Service March 12, 2021 Assessment & Plan Chart Review Chart Review: Patient NOT seen in Pre Admission Testing Consults Requested none ASA ASA4 Proposed Anesthesia Anesthesia Type: General History Surgery Operation Date: 03/12/21 13:10 Proposed Procedures p Right Hip Bipolar Cyrus Arthroplasty - Melo Ibarra MD Height/Weight Height: 5 ft 5 in Weight: 66.5 kg Allergies Allergy/AdvReac Type Severity Reaction Status Date / Time No Known Allergies Allergy Verified 03/11/21 19:34 Medications Home Medications Medication Instructions Recorded Confirmed Last Taken atenolol 100 mg tablet 100 mg PO QPM 03/11/21 03/11/21 03/10/21 atorvastatin 20 mg tablet 20 mg PO QAM 03/11/21 03/11/21 03/11/21 hydrochlorothiazide 25 mg tablet 25 mg PO QPM 03/11/21 03/11/21 03/10/21 levothyroxine 75 mcg tablet 75 mcg PO QAM 03/11/21 03/11/21 03/11/21 Active Medications Generic Name Dose Route Start Last Admin Trade Name Freq PRN Reason Stop Dose Admin Atenolol 100 mg 03/11/21 21:18 03/11/21 21:35 Atenolol 50 Mg Tablet PO 04/10/21 21:17 100 mg QPM EHSAN Administration Atorvastatin Calcium 20 mg 03/12/21 09:00 03/12/21 09:23 Atorvastatin 20 Mg Tab PO 04/11/21 08:59 20 mg QAM EHSAN Administration Hydrochlorothiazide 25 mg 03/11/21 21:18 03/11/21 21:35 Hydrochlorothiazide 25 Mg Tab PO 04/10/21 21:17 25 mg QPM EHSAN Administration Levothyroxine Sodium 75 mcg 03/12/21 06:30 03/12/21 05:55 Levothyroxine Sodium 75 Mcg Tablet PO 04/11/21 06:29 75 mcg DAILYBB EHSAN Administration Morphine Sulfate 2 mg 03/11/21 19:17 03/12/21 11:37 Morphine Sulfate 2 Mg/Ml Carp IV 03/25/21 19:16 2 mg Q1H PRN Administration Moderate Pain (Rating 3,4,5,6) NPO Date Last Intake of Fluids: 03/11/21 Time Last Intake of Fluids: 12:00 Date Last Intake of Solids: 03/11/21 Time Last Intake of Solids: 12:00 Past Medical History Medical History (Updated 03/12/21 @ 13:12 by Joni Damian MD) Dyslipidemia Hypertension Hypothyroid Exercise / Class Metabolic Activity III < 4 Walking/Shop/Light housework Past Surgical History Surgical History No significant past surgical history Past Anesthesia History No Hx of Anesthesia Complications and No Family Hx of Anesthesia Complications History of PONV No Hx of PONV and No Hx of Motion Sickness Social History Smoking Status: Never smoker Hx Alcohol Use: No Hx Substance Use: No Physical Exam Vital Signs Last Vital Signs Temp 36.5 C 03/12/21 07:24 Pulse 58 L 03/12/21 07:24 Resp 14 03/12/21 07:24 BP 116/77 03/12/21 07:24 Pulse Ox 97 03/12/21 07:24 Testing Laboratory Results 03/12/21 05:43 03/12/21 05:43 PT 10.2 Seconds (9.0-12.0) 03/11/21 19:47 INR 1.0 (0.9-1.1) 03/11/21 19:47 APTT 24.1 Seconds (21.0-31.0) 03/11/21 19:47 Urine Color Yellow 03/11/21 20:07 Urine Appearance Clear (Clear) 03/11/21 20:07 Urine pH 6.0 (4.5-7.5) 03/11/21 20:07 Ur Specific [place] 1.015 (1.000-1.030) 03/11/21 20:07 Urine Protein Negative (Negative) 03/11/21 20:07 Urine Glucose (UA) Negative (Negative) 03/11/21 20:07 Urine Ketones Negative (Negative) 03/11/21 20:07 Urine Nitrite Negative (Negative) 03/11/21 20:07 Ur Leukocyte Esterase Negative (Negative) 03/11/21 20:07 Blood Type O Positive 03/11/21 19:47 Antibody Screen NEGATIVE 03/11/21 19:47 Electrocardiogram Date: 03/11/21 Findings: + NSR @ (@ 70;ST & T wave abnormality;consider anterior ischemia), + LVH (moderate) and + NSST changes Chest X-Ray Date: 03/11/21 Findings: + NAD
[2021-03-12] MEDS ORDERED: ePHEDrine sulfate 50 MG/ML AMP ONE (15:11)
[2021-03-12] MEDS ORDERED: fentaNYL citrate 100 MCG/2 ML VIAL ONE ×2 (15:11→19:50)
[2021-03-12] MEDS ORDERED: PROPOFOL IV EMULSION 10 MG/ML 20 ML VIAL IV ONE ×2 (15:11→17:42)
[2021-03-12] MEDS ORDERED: LIDOCAINE 2% 2 ML VIAL/AMP(20MG/ML) INFIL ONE ×2 (15:11→17:42)
[2021-03-12] MEDS ORDERED: BUPIVACAINE 0.5 % 5 MG/1 ML PF 10ML VIAL ONE (15:37)
[2021-03-12] MEDS ORDERED: TRANEXAMIC ACID / 0.7% NACL 1000MG/100ML BAG IV ONE (16:47)
[2021-03-12] MEDS ORDERED: ceFAZolin 1000MG 1,000 MG/7.5 ML SYR IV SCH (16:50)
[2021-03-12] MEDS ORDERED: TRANEXAMIC ACID / 0.7% NACL 1,000 MG/100 ML BAG IV ONE ×2 (16:51)
--- NOTE | 2021-03-12 17:11 | History & Physical Bridge Note ---
Date of Service March 12, 2021 History & Physical Bridge Note I have examined the patient, reviewed the History & Physical and in the interval since the performance of the History & Physical I have noted the following changes of clinical significance: no changes noted
[2021-03-12] MEDS ORDERED: ePHEDrine sulfate 50 MG/ML SYR ONE (17:42)
[2021-03-12] MEDS ORDERED: DEXAMETHASONE SOD INJ 4 MG/ML VIAL ONE (17:42)
[2021-03-12] MEDS ORDERED: PHENYLEPHRINE 100MCG/ML 5ML SYR ONE (17:42)
[2021-03-12] MEDS ORDERED: ONDANSETRON INJ 2 MG/ML 2 ML VIAL ONE (17:42)
[2021-03-12] MEDS ORDERED: LABETALOL HCL IV 5 MG/ML 20ML IV PRN (19:30)
[2021-03-12] MEDS ORDERED: FLUMAZENIL 0.1 MG/1 ML 10 ML VIAL IV PRN (19:30)
[2021-03-12] MEDS ORDERED: NALOXONE HCL 0.4 MG/1 ML VIAL/CARP IV PRN ×2 (19:30→21:18)
[2021-03-12] MEDS ORDERED: PROMETHAZINE HCL 12.5 MG in SODIUM CHLORIDE 0.9% 50 ML IV PRN (19:30)
[2021-03-12] MEDS ORDERED: ATROPINE SULFATE 0.1 MG/ML 10ML SYR IV PRN (19:30)
[2021-03-12] MEDS ORDERED: ePHEDrine sulfate 50 MG/ML AMP IV PRN (19:30)
[2021-03-12] MEDS ORDERED: ONDANSETRON INJ 2 MG/ML 2 ML VIAL IV PRN ×2 (19:30→21:18)
--- NOTE | 2021-03-12 19:35 | Operative Report ---
Post Operative Report Pre & Post Diagnosis Operation Date: 03/12/21 13:10 Pre-Op Diagnosis: Right angulated and shortened femoral neck fracture with ipsilateral proximal humerus fracture Post-Op Diagnosis: Right angulated and shortened femoral neck fracture with ipsilateral proximal humerus fracture I identified the patient and participated in the time-out.: Yes Procedure Operation Date: 03/12/21 13:10 Actual Procedures p Cemented Right Hip Bipolar Hemiarthroplasty(Right) - Melo Ibarra MD Surgeon Melo Ibarra MD Publicity Agent Alcon MACK Estimated Blood Loss 80 Findings Consistent with Post-Op Diagnosis Specimens Femoral head Drains 2 Hemovac Anesthesia Type Spinal Complications none Disposition Accompanied Patient To Recovery: No Disposition: Recovery Room Indications 89-year-old female who injured proximal right humerus and her right hip with impacted proximal humerus fracture and valgus impacted right femoral neck fracture but on the lateral view there is posterior alignment of the femoral head with apex anterior angulation more consistent with a Garden 3 type angulated head which is posterior aligned with regard to the shaft. This was not clearly defined on CAT scan views obtained and was clearly not nondisplaced. Clinically the leg was shortened and externally rotated. Description of Procedure Patient was taken to the operating room this is under anesthesia. The patient was placed supine on the operating table and the sacral pad. Due to the fracture in the right shoulder she was kept in her sling the arm was placed over her abdomen and padded with foam padding and taped out of the field with regard to the hip. The bed is placed in some Trendelenburg and tilted slightly to the left for hip exposure. The hip was sterilely prepped and draped in usual sterile fashion using ChloraPrep.. A Otero-type approach was performed to the hip. A longitudinal incision was made over the hip. The skin was incised sharply and the subcutaneous tissues were divided down to the fascia. Subcutaneous bleeders were cauterized. The fascia matteo was divided longitudina lly. The gluteus medius was inspected and this demonstrated some internal tendinopathy but major attachments were normal.. The medius was split between its anterior 40% and posterior 60%. The minimus was identified split longitudinally and reflected off of the capsule. An incision was made through the capsule extending up to the acetabulum leaving the acetabular labrum intact. A cuff of tissue of the medius was left on the greater trochanter for repair. The vastus lateralis was split for 3 cm. A muscular capsular flap was elevated off of the fracture. Femoral neck fracture demonstrated the femoral head was displaced posteriorly with anterior angulation and the bone was osteoporotic in the neck area and the fracture was not stable as with simple rotation of the hip fracture displaced easily. The guide for the Accolade C cemented [place] hip system was used. The neck cut was made approximately 15 mm proximal to the lesser trochanter in neutral anteversion. The neck fragments and the femoral head were removed and measured. The remnants of the ligamentum teres was resected. The acetabulum demonstrated minor osteoarthritic degenerative changes.. The acetabulum was sized for a size 46 component. There was a good suction fit with the trial. The femur was then exposed with flexion external rotation. The femoral canal was prepared with a canal reamer followed by a lateralized trochanteric reamer followed by sequential broaches up to a size 4 component. This had good fit and fill with the trial. Trial reduction was performed with a 132 degree angle neck angle with a +0 neck length and the bipolar 46 trial head. The hip was stable through flexion adduction and internal rotation and extension adduction and external rotation. Leg lengths demonstrated equal leg lengths. The trials removed and the canal was irrigated copiously with pulsatile lavage solution. The small cement restrictor was placed distal to the level of the cemented stem. Canal brush and a canal tampon were used. The final component was the Accolade C1 32 degree neck angle size 4 with a medium 12 mm distal cement spacer.. This was cemented into position with [place] G cement without pressurization. Stem was held in place until cement cured.. The cobalt chromium femoral head size 26+0 was impacted onto the stem and then the 46 mm bipolar head was assembled and snapped onto the head. The hip was reduced to the acetabulum and stability was verified. The wound was copiously irrigated again with pulsatile lavage. 2 Hemovac drains were placed deep into the joint and brought out laterally. The capsule was repaired with interrupted [id number] #1 Vicryl sutures. The gluteus minimus was repaired with 2 [id number] #1 Vicryl sutures. Transosseous #5 FiberWire was used to reattach the gluteus minimus and capsule back to the neck. The gluteus medius was repaired with transosseous #5 FiberWire sutures with Arnold-Jose suture technique.. The fascia matteo was repaired with interrupted [id number] #1 Vicryl sutures the subcutaneous tissue closed with large #2 Vicryl sutures to close space followed by interrupted 2-0 Vicryl sutures. The skin was closed with armando. Sterile dressings were applied. My physician autopsy assistant Alcon MACK was my early childhood assistant throughout the surgery and assisted with positioning prepping draping leg position and soft tissue retraction instrument management and assisted in the outer closure and will participate in the postoperative care the patient. The patient tolerated the procedure well. I attest to the content of the Intraoperative Record and any orders documented therein. Any exceptions are noted below.
[2021-03-12] MEDS: fentaNYL citrate 100 MCG/2 ML VIAL IV PRN ×2 (20:35→20:40)
--- NOTE | 2021-03-12 20:47 | XRay Report ---
XR hip 1V RT w pelvis CLINICAL HISTORY: Hip pain, postsurgical exam TECHNIQUE: 2 views of the right hip and single frontal view of the pelvis were obtained. Comparison: Comparison is made to right hip 2 views 03/12/2021 FINDINGS: Interval placement of right total hip arthroplasty. No evidence of hardware fracture or perihardware lucency. The bones are anatomically aligned. The bony mineralization is normal. IMPRESSION: Expected postsurgical appearance status post placement of right total hip arthroplasty. ACT 112: Negative or not required by law. Electronically signed by: Ravinder Villar M.D. 03/12/2021 8:45 PM
[2021-03-12] MEDS ORDERED: bisacodyL 10 MG SUPP PR PRN (21:18)
[2021-03-12] MEDS ORDERED: HYDROmorphone INJ 0.5 MG/0.5 ML SYR IV PRN (21:18)
[2021-03-12] MEDS ORDERED: SODIUM CHLORIDE 0.9% 1000ML 1,000 ML IV SCH (21:18)
[2021-03-12] MEDS ORDERED: MAGNESIUM HYDROXIDE SUSP 30 ML UDC PO PRN (21:18)
[2021-03-12] MEDS ORDERED: METOCLOPRAMIDE HCL INJ 5 MG/ML 2 ML VIAL IV PRN (21:18)
--- NOTE | 2021-03-12 21:28 | Anesthesiology Progress Note ---
Date of Service March 12, 2021 Anesthesia Post Procedure Vital Signs Vital Signs: Temp Pulse Pulse Resp BP Pulse Ox 03/12/21 20:55 36.3 C L 69 13 119/56 L 96 03/12/21 20:45 77 18 109/61 97 03/12/21 20:35 73 14 130/64 98 03/12/21 20:25 75 16 129/62 98 03/12/21 20:15 74 16 120/74 98 03/12/21 20:05 73 13 111/71 95 03/12/21 19:59 36.9 C 78 78 15 108/58 L 95 03/12/21 16:44 37.9 C H 72 18 133/61 92 03/12/21 15:22 37.1 C 63 12 135/66 94 03/12/21 07:24 36.5 C 58 L 14 116/77 97 03/11/21 23:45 36.8 C 70 18 151/69 H 94 03/11/21 23:13 65 143/79 H 94 Pain Intensity Right Hip: Pain Intensity: 4 Right Elbow: Pain Intensity: 9 Transfer of Care Handoff Completed per policy Notes Mental Status: alert / awake / arousable Patient Amnestic to Procedure: Yes Nausea / Vomiting: adequately controlled Pain: adequately controlled Airway Patency, RR, SpO2: stable & adequate BP & HR: stable & adequate Hydration State: stable & adequate Anesthetic Complications: no major complications apparent
[2021-03-12] MEDS: ATENOLOL 50 MG TABLET PO SCH (22:24)
[2021-03-12] MEDS: SENNA 8.6 MG TAB PO SCH (22:24)
[2021-03-12] MEDS: DOCUSATE SODIUM 100 MG CAP PO SCH (22:24)
[2021-03-12] MEDS: ENOXAPARIN INJ 40 MG/0.4 ML SYR SQ SCH (22:25)
[2021-03-12] MEDS: hydroCHLOROthiazide 25 MG TAB PO SCH (22:25)
[2021-03-12] MEDS: ACETAMINOPHEN 500 MG TAB PO SCH (22:50)
[2021-03-13] MEDS: MoRPHine SULFATE 2 MG/ML CARP IV PRN (01:21)
[2021-03-13] MEDS: ceFAZolin 1000MG 1,000 MG/7.5 ML SYR IV SCH ×2 (01:23→10:28)
[2021-03-13] MEDS: LEVOTHYROXINE SODIUM 75 MCG TABLET PO SCH ×2 (05:24→20:13)
[2021-03-13] MEDS: ACETAMINOPHEN 500 MG TAB PO SCH ×3 (05:24→21:16)
[2021-03-13 06:04] LABS: Basophils # (auto) 0.01 K/uL (0-0.2); Basophils % (auto) 0.1 %; Hematocrit (blood only) 32.6 % (37-47); Hemoglobin 11.1 g/dL (12.0-16.0); Immature Granulocytes # (auto) 0.03 K/uL (0.00-0.02); Immature Granulocytes % (auto) 0.2 %; Lymphocytes # (auto) 0.84 K/uL (1.2-3.4); Lymphocytes % (auto) 6.9 %; Mean Corpuscular Hemoglobin 29.4 pg (25-34); Mean Corpuscular Volume 86.5 fL (80-100); Mean Platelet Volume 9.9 fL (7.4-10.4); Monocytes # (auto) 0.95 K/uL (0.11-0.59); Monocytes % (auto) 7.9 %; Neutrophils # (auto) 10.27 K/uL (1.4-6.5); Neutrophils % (auto) 84.9 %; Platelet Count 209 K/uL (130-400); RDW Coefficient of Variation 13.6 % (11.5-14.5); RDW Standard Deviation 43.4 fL (36.4-46.3); Red Blood Count 3.77 M/uL (4.2-5.4)
[2021-03-13 06:31] LABS: BUN Creatinine Ratio 17.8 (10-20); Calcium 8.5 mg/dl (8.5-10.1); Creatinine Clr Calc Pharmacy 36.9 ml/min; Est GFR (African American) 63.2 ml/min; Est GFR (Non-African American) 54.5 ml/min; Potassium 3.6 mmol/L (3.5-5.1)
--- NOTE | 2021-03-13 07:20 | Orthopedic Progress Note ---
Date of Service March 13, 2021 Assessment & Plan (1) Femur fracture, right: Plan: Patient is POD#1 right bipolar hemiarthroplasty. Pain management as written. She is WBAT, will need hemiwalker due to NWB right UE. AM labs with hemoglobin at 11.1, acute blood loss anemia likely due to surgical loss/dilutional. Lovenox for DVT prophylaxis with SCDs and TEDs. May require inpatient,will see how she does with PT. Will continue to follow (2) Humerus fracture: Plan: Patient has a mildly displaced proximal humerus fracture. Discussed nonoperative management for this at this time. Will get into a shoulder immobilizer. Patient is to be nonweightbearing to the right upper extremity. May do light elbow wrist and hand range of motion. We will get new x-rays in 2 weeks. Admission and Anticipated Discharge Date Admission Date: March 11, 2021 Subjective Patient is postop day 1 right bipolar hemiarthroplasty right hip. She also has a proximal humerus fracture. She is doing well this morning. Pain is well controlled. Denies other complaints. No chest pain, shortness of breath, dizziness, headaches, fevers/chills, nausea/vomiting/diarrhea. Review of Systems Review of Systems: All systems reviewed & are unremarkable except as noted in Subjective Physical Exam Physical Exam: Right shoulder sling in place. Fingers mobile, good mixer machine feeder strength. Distally n/v status intact Right hip dressing is c/d/i. Toes mobile with good dorsiflexion. No calf tenderness. Distally n/v status and sensation are intact. Constitutional: WD/WN, vitals as above Results & Data ([facility]) Vital Signs (Past 12 Hours) Vital Signs Temp Pulse Pulse Pulse Resp BP Pulse Ox 03/13/21 04:00 36.4 C L 65 18 109/66 100 03/13/21 00:27 36.3 C L 72 16 117/71 100 03/12/21 23:05 36.7 C 73 18 116/72 100 03/12/21 22:10 69 20 135/71 99 03/12/21 21:45 94 03/12/21 21:40 36.7 C 71 20 127/68 85 L 03/12/21 21:10 36.6 C 68 18 114/69 98 03/12/21 20:55 36.3 C L 69 13 119/56 L 96 03/12/21 20:45 77 18 109/61 97 03/12/21 20:35 73 14 130/64 98 03/12/21 20:25 75 16 129/62 98 03/12/21 20:15 74 16 120/74 98 03/12/21 20:05 73 13 111/71 95 03/12/21 19:59 36.9 C 78 78 15 108/58 L 95 (1) Femur fracture, right Encounter type: initial encounter Femur location: neck, unspecified portion (2) Humerus fracture Encounter type: initial encounter Fracture type: closed Humerus Location: proximal Laterality: right
--- NOTE | 2021-03-13 07:37 | Hospitalist Progress Note ---
Date of Service March 13, 2021 Assessment & Plan (1) Fall: Plan: Kaity Moran is a 89y/o female with past medical history significant for hypertension, hypothyroidism, hyperlipidemia; who presented to the emergency department following fall from standing height causing fracture of humerus and femur. Humerus/femoral fracture - POD 1 right bipolar hemiarthroplasty for femoral fx -Shoulder x-ray demonstrating right acute impacted right humeral neck fracture -Hip x-ray demonstrating right acute impacted subcapital femoral neck fracture -Serum vitamin D level of 39.8 -Orthopedic surgery consulted: - She is WBAT, will need hemiwalker due to NWB right UE - Lovenox for DVT prophylaxis with SCDs and TEDs - Shoulder immobilizer; NWB to RUE - PT/OT recommending rehab -- CM with referral out to [facility], pending acceptance -Patient would benefit from DEXA scan in the future EKG abnormalities: - EKG on admission with NSR but notable for ST&T wave abnormalities on anterior leads - Has not had CP or cardiac-related complaints, hemodynamically stable - Repeat EKG 03/12 with stable changes - Troponin undetectable Falls: -Seemingly mechanical fall -Patient with previous imbalance history upon review of PCP records -Previously had utilized PT for gait training -PT/OT ordered for eval/treat after surgery Hypertension: -Home regimen of hydrochlorothiazide 25mg and atenolol 100mg Hypothyroidism: -Home regimen of Synthroid 75mcg Hyperlipidemia: -Home regimen of atorvastatin 20mg Diet: Regular DVT prophylaxis: Lovenox 40mg SQ daily Dispo: [facility] CODE STATUS: DNR/DNI (2) Humerus fracture: (3) Femur fracture, right: (4) Hypertension: (5) Hypothyroid: Admission and Anticipated Discharge Date Admission Date: March 11, 2021 Supervising Physician Co-Signing Physician Notes Resident Physician Supervision Note: I independently interviewed and examined the patient and verified the vivar history and physical, reviewed labs and image studies and agree with resident Dr. Garcia findings and care plan. Subjective No acute events overnight. She is now POD1. Pain is well controlled and has no other complaints. Denies fever, chills, n/v, CP, palp, SOB, abd pain. Review of Systems Review of Systems: Per subjective Physical Exam Physical Exam: GENERAL: A&Ox3. NAD. CHEST/LUNGS: CTAB A/P. No crackles, wheezes, rales, rhonchi. HEART: RRR. No m/g/r. No carotid bruits. EXTREMITIES: No cyanosis, no clubbing, no edema. Right hip dressing in place c/d/i. Right shoulder sling in place. SKIN: Warm and dry. No rashes or lesions. PSYCHIATRIC: Euthymic affect, no SI, no pressured speech, no hallucinations NEUROLOGIC: No FND. CN II-XII grossly intact. Results & Data Results & Data ([facility]) Vital Signs (Past 12 Hours) Vital Signs Temp Pulse Pulse Pulse Resp BP Pulse Ox 03/13/21 07:32 36.5 C 61 16 99/64 L 92 03/13/21 04:00 36.4 C L 65 18 109/66 100 03/13/21 00:27 36.3 C L 72 16 117/71 100 03/12/21 23:05 36.7 C 73 18 116/72 100 03/12/21 22:10 69 20 135/71 99 03/12/21 21:45 94 03/12/21 21:40 36.7 C 71 20 127/68 85 L 03/12/21 21:10 36.6 C 68 18 114/69 98 03/12/21 20:55 36.3 C L 69 13 119/56 L 96 03/12/21 20:45 77 18 109/61 97 03/12/21 20:35 73 14 130/64 98 03/12/21 20:25 75 16 129/62 98 03/12/21 20:15 74 16 120/74 98 03/12/21 20:05 73 13 111/71 95 03/12/21 19:59 36.9 C 78 78 15 108/58 L 95 Resident Activity Tracking Resident Involvement: Resident Care Provided Care Provided: Adult Hospital Medicine (1) Femur fracture, right Encounter type: initial encounter Femur location: neck, unspecified portion (2) Humerus fracture Encounter type: initial encounter Fracture type: closed Humerus Location: proximal Laterality: right
[2021-03-13] MEDS: MULTIVITAMIN TAB PO SCH ×2 (09:07→20:13)
[2021-03-13] MEDS: ATORVASTATIN 20 MG TAB PO SCH (09:07)
[2021-03-13] MEDS: DOCUSATE SODIUM 100 MG CAP PO SCH ×2 (09:07→20:13)
--- NOTE | 2021-03-13 11:55 | Electrocardiogram Report ---
Test Reason : Blood Pressure : / mmHG Vent. Rate : 070 BPM Atrial Rate : 070 BPM P-R Int : 170 ms QRS Dur : 088 ms QT Int : 424 ms P-R-T Axes : 046 -03 -11 degrees QTc Int : 457 ms Normal sinus rhythm Moderate voltage criteria for LVH, may be normal variant Abnormal ECG No previous ECGs available Confirmed by Joey Arnold ([id number]) on 03/13/2021 11:55:25 AM Referred By: REFERRED SELF Confirmed By:Joey Arnold
[2021-03-13] MEDS: oxyCODONE HCL IR 5 MG TAB (IMMEDIATE RELEASE) PO PRN ×2 (13:29→14:51)
--- NOTE | 2021-03-13 15:15 | Electrocardiogram Report ---
Test Reason : Blood Pressure : / mmHG Vent. Rate : 063 BPM Atrial Rate : 063 BPM P-R Int : 152 ms QRS Dur : 082 ms QT Int : 426 ms P-R-T Axes : 025 008 -20 degrees QTc Int : 435 ms Normal sinus rhythm Minimal voltage criteria for LVH, may be normal variant Abnormal ECG When compared with ECG of 11-MAR-2021 19:32, (unconfirmed) No significant change was found Confirmed by Joey Arnold ([id number]) on 03/13/2021 3:15:13 PM Referred By: REFERRED SELF Confirmed By:Joey Arnold
[2021-03-13] MEDS: SENNA 8.6 MG TAB PO SCH (20:13)
[2021-03-13] MEDS: hydroCHLOROthiazide 25 MG TAB PO SCH (20:13)
[2021-03-13] MEDS: ENOXAPARIN INJ 40 MG/0.4 ML SYR SQ SCH (20:14)
[2021-03-13] MEDS: ATENOLOL 50 MG TABLET PO SCH (20:25)
[2021-03-14] MEDS: ACETAMINOPHEN 500 MG TAB PO SCH ×2 (05:40→15:09)
--- NOTE | 2021-03-14 07:13 | Orthopedic Progress Note ---
Date of Service March 14, 2021 Assessment & Plan (1) Femur fracture, right: Plan: Patient is POD#2 right bipolar hemiarthroplasty. Pain management as written. She is WBAT, will need hemiwalker due to NWB right UE. Lovenox for DVT prophylaxis with SCDs and TEDs. May require inpatient,will see how she does with PT. Will continue to follow (2) Humerus fracture: Plan: Patient has a mildly displaced proximal humerus fracture. Discussed nonoperative management for this at this time. Will get into a shoulder immobilizer. Patient is to be nonweightbearing to the right upper extremity. May do light elbow wrist and hand range of motion. We will get new x-rays in 2 weeks. Admission and Anticipated Discharge Date Admission Date: March 11, 2021 Subjective Patient resting in bed comfortably. Doing well this morning. Minimal hip pain. Shoulder pain is controlled. Continued elbow pain, is improving. X-rays on admission negative for fracture, no fat pad sign. Questionable small avulsion off coronoid. No other complaints. Denies chest pain, sob, dizziness, n/v/d, hea dache, fever, chills. Review of Systems Review of Systems: All systems reviewed & are unremarkable except as noted in Subjective Physical Exam Physical Exam: Right shoulder sling in place. Fingers mobile, good computer consultant strength. Distally n/v status intact Right elbow: Mild tenderness olecranon, abrasion to right elbow. No erythema. Pain with elbow extension. Right hip dressing is c/d/i. Toes mobile with good dorsiflexion. No calf ten derness. Distally n/v status and sensation are intact. Constitutional: WD/WN, vitals as above Results & Data ([facility]) Vital Signs (Past 12 Hours) Vital Signs Temp Pulse Resp BP Pulse Ox 03/13/21 22:41 94/57 L 03/13/21 22:40 37.2 C 94 H 16 74/40 L 91 03/13/21 20:00 97 H 93/57 L (1) Femur fracture, right Encounter type: initial encounter Femur location: neck, unspecified portion (2) Humerus fracture Encounter type: initial encounter Fracture type: closed Humerus Location: proximal Laterality: right
--- NOTE | 2021-03-14 07:50 | Hospitalist Progress Note ---
Date of Service March 14, 2021 Assessment & Plan Admission and Anticipated Discharge Date Admission Date: March 11, 2021 Results & Data Results & Data ([facility]) Vital Signs (Past 12 Hours) Vital Signs Temp Pulse Resp BP Pulse Ox 03/14/21 07:31 37.4 C 81 18 103/65 92 03/13/21 22:41 94/57 L 03/13/21 22:40 37.2 C 94 H 16 74/40 L 91 03/13/21 20:00 97 H 93/57 L
[2021-03-14] MEDS: ATORVASTATIN 20 MG TAB PO SCH (08:06)
[2021-03-14] MEDS: DOCUSATE SODIUM 100 MG CAP PO SCH (08:07)
[2021-03-14 08:08] LABS: Hemoglobin 9.3 g/dL (12.0-16.0); Mean Corpuscular Hemoglobin 29.5 pg (25-34); Mean Corpuscular Hgb Conc 34.4 g/dL (32-36); Mean Corpuscular Volume 85.7 fL (80-100); Mean Platelet Volume 10.1 fL (7.4-10.4); Platelet Count 195 K/uL (130-400); RDW Coefficient of Variation 13.8 % (11.5-14.5); RDW Standard Deviation 42.9 fL (36.4-46.3); Red Blood Count 3.15 M/uL (4.2-5.4); White Blood Count 13.12 K/uL (4.8-10.8)
[2021-03-14 08:42] LABS: BUN Creatinine Ratio 26.1 (10-20); Calcium 8.5 mg/dl (8.5-10.1); Est GFR (African American) 84.6 ml/min; Potassium 3.2 mmol/L (3.5-5.1)
[2021-03-14] MEDS ORDERED: SENNA 8.6 MG TAB PO SCH (10:45)
--- NOTE | 2021-03-14 15:39 | Discharge Summary ---
Date of Service March 14, 2021 Admission HPI Per Admitting Provider Kaity Moran is a 89y/o female with past medical history significant for hypertension, hypothyroidism, hyperlipidemia; who presented to the emergency department following fall from standing height causing fracture of humerus and femur. Earlier this evening was walking with daughter when picked up a stick from the ground upon throwing a stick from her right side she seemingly lost balance from standing height and landed directly on her right side. Did not hit her head did not lose consciousness remembers the entirety of the event. Has had a long standing history of difficulty with maintaining her balance, however did not feel lightheaded when this was going on nor have any spinning, changes of vision, or dizziness. Previously had worked with physical therapy on gait training and balance training at the recommendation of her PCP many years ago; this seemingly had worked for some time, and was able to increase her overall level activity. Over the last several weeks have been walking easily a mile or more a day without difficulty or falls. Had also recently discussed need for a DEXA scan with her PCP as she had not had one in many years. Principal Diagnosis Humeral & femoral fractures Discharge Exam GENERAL: A&Ox3. NAD. CHEST/LUNGS: CTAB A/P. No crackles, wheezes, rales, rhonchi. HEART: RRR. No m/g/r. No carotid bruits. EXTREMITIES: No cyanosis, no clubbing, no edema. Right hip dressing in place c/d/i. Right shoulder sling in place. SKIN: Warm and dry. No rashes or lesions. PSYCHIATRIC: Euthymic affect, no SI, no pressured speech, no hallucinations NEUROLOGIC: No FND. CN II-XII grossly intact. Discharge Data Allergies Allergy/AdvReac Type Severity Reaction Status Date / Time No Known Allergies Allergy Verified 03/11/21 19:34 Consultations 03/11/21 19:48 ED Decision to Admit Stat 03/11/21 21:18 Consult Orthopedic Surgery Routine Procedures Performed Operation Date: 03/12/21 13:10 Actual Procedures p Cemented Right Hip Bipolar Hemiarthroplasty(Right) - Melo Ibarra MD Ordered Studies 03/12/21 07:14 CT hip RT wo con Stat Hospital Course (1) Fall: Kaity Moran is a 89y/o female with past medical history significant for hypertension, hypothyroidism, hyperlipidemia; who presented to the emergency department following fall from standing height causing fracture of humerus and femur. Humerus/femoral fracture - POD 2 right bipolar hemiarthroplasty for femoral fx - Shoulder x-ray demonstrating right acute impacted right humeral neck fracture - Hip x-ray demonstrating right acute impacted subcapital femoral neck fracture - Serum vitamin D level of 39.8 - Orthopedic surgery consulted: - She is WBAT, will need hemiwalker due to NWB right UE - Lovenox for DVT prophylaxis with SCDs and TEDs - Shoulder immobilizer; NWB to RUE - PT/OT recommending rehab -- transfer to [facility] 03/14 - Patient would benefit from DEXA scan in the future EKG abnormalities: - EKG on admission with NSR but notable for ST&T wave abnormalities on anterior leads - No CP or cardiac-related complaints, hemodynamically stable - Repeat EKG 03/12 with stable changes - Troponin undetectable Falls: - Seemingly mechanical fall - Patient with previous imbalance history upon review of PCP records - Previously had utilized PT for gait training Hypertension: - Home regimen of hydrochlorothiazide 25mg and atenolol 100mg Hypothyroidism: - Home regimen of Synthroid 75mcg Hyperlipidemia: - Home regimen of atorvastatin 20mg DVT prophylaxis: Lovenox 40mg SQ daily Dispo: Transfer to inpatient rehab CODE STATUS: Conditional Code: DNI, all other ACLS okay per patient (2) Humerus fracture: (3) Femur fracture, right: (4) Hypertension: (5) Hypothyroid: Total Time Total Time Spent Total Time Spent (In Minutes): see attending attestation Discharge Plan Discharge Items Patient Disposition: Transfer Inpatient Rehab Fac Reason For Visit: HUMERAL & FEMORAL FRACTURES Discharge Diagnosis: Humeral & femoral fractures Condition on Discharge: Good Activity: Per Instructions section Non-emergency contact: Primary Care Provider and Surgeon Call non-emergency contact if: you have any medication questions, your symptoms worsen and your pain is not controlled Follow-up/Referrals: Susie White MD [Primary Care Provider] - Diet: Heart Healthy Addtl Attending Provider Instructions: Kaity Moran is a 89y/o female with past medical history significant for hypertension, hypothyroidism, hyperlipidemia; who presented to the emergency department following fall from standing height causing fracture of humerus and femur. Humerus/femoral fracture - POD 2 right bipolar hemiarthroplasty for femoral fx - Shoulder x-ray demonstrating right acute impacted right humeral neck fracture - Hip x-ray demonstrating right acute impacted subcapital femoral neck fracture - Serum vitamin D level of 39.8 - Orthopedic surgery consulted: - She is WBAT, will need hemiwalker due to NWB right UE - Lovenox for DVT prophylaxis with SCDs and TEDs - Shoulder immobilizer; NWB to RUE - PT/OT recommending rehab -- transfer to [facility] 03/14 - Patient would benefit from DEXA scan in the future EKG abnormalities: - EKG on admission with NSR but notable for ST&T wave abnormalities on anterior leads - Has not had CP or cardiac-related complaints, hemodynamically stable - Repeat EKG 03/12 with stable changes - Troponin undetectable Falls: - Seemingly mechanical fall - Patient with previous imbalance history upon review of PCP records - Previously had utilized PT for gait training - PT/OT ordered for eval/treat after surgery Hypertension: - Home regimen of hydrochlorothiazide 25mg and atenolol 100mg Hypothyroidism: - Home regimen of Synthroid 75mcg Hyperlipidemia: - Home regimen of atorvastatin 20mg DVT prophylaxis: Lovenox 40mg SQ daily Dispo: Transfer to inpatient rehab CODE STATUS: Conditional Code: DNI, all other ACLS okay per patient Addtl Hydrostatic Tester Provider Instructions: ACTIVITY RECOMMENDATIONS: SELF CARE INSTRUCTIONS AFTER TOTAL HIP REPLACEMENT Until the incision and soft tissues around your hip have healed, there is a possibility that the hip prosthesis could dislocate. A. Observe the following precautions to prevent dislocation: 1. Don't bend your hip greater than 90 degrees. 2. Avoid crossing your legs or ankles while standing or lying. 3. Sit with your feet placed 6 inches apart. 4. When sitting, keep your knees below your hips. Sit on a firm surface, avoid deep, soft chairs and couches. Use an elevated toilet seat in the bathroom. 5. Don't bend over at the waist. Use a long handled shoehorn and a sock aid to help you put on your shoes and socks. A corporate sales trainer can help you bean picker machine operator objects that are too high or too low to reach. 6. Keep car riding to a minimum for at least one month after surgery. B. Your balance may be shaky for a while. Use crutches or a walker until directed by your doctor. C. Use hand rails when walking on stairs. D. Wear low heeled shoes with non-slip soles. E. Be sure that your floors are free of things that could trip you - throw rugs, electrical cords, small objects. Avoid wet and waxed floors, especially with crutches and canes. F. Try to walk several times a day with rest periods between. G. Continue with all the exercises taught to you in the hospital. Again, make walking a part of your daily routine. You should be Non weightbearing to your right arm. Wear sling at all times. Can remove to do light elbow and wrist/hand motion. SPECIAL CARE INSTRUCTIONS: VERY IMPORTANT TO READ AND REVIEW A. You may still be at risk for phlebitis and blood clots. 1. Wear surgical stockings (LISA hose) for 2 weeks after surgery to improve circulation and reduce swelling. 2. Take Aspirin 81mg twice daily for 4 weeks or as directed by your doctor. This is your blood thinner. 3. High risk patients may be prescribed a stronger blood thinner if necessary. 4. If you are on Coumadin normally, your family doctor/sole blacker should monitor your blood work. Expect a phone call the day of or the day after bloodwork is drawn to adjust your dosage. B. You must take antibiotics before having dental work, bladder, bowel and other surgery. Your doctor will provide you with a permanent card to carry describing precautions. C. Call [facility] if you have a fever, redness or swelling around the incision, cloudy drainage from incision, or sudden increase in pain in your hip, not relieved by your regular pain medication. D. Please call the office at if you have any concerns or questions about your operation or recovery. * YOU MAY SHOWER, NO TUB BATHS UNTIL CLEARED BY YOUR DOCTOR. * WEAR LISA HOSE 20 HOURS PER DAY FOR 2 WEEKS. * YOU SHOULD USE A WALKER OR CRUTCHES FOR 6 WEEKS. THIS WILL HELP PREVENT STRAIN ON YOUR HIP MUSCLE AND ALLOW IT TO HEAL PROPERLY. YOU MAY WEAN TO A CANE TOLERATED. * MOST PATIENTS WILL HAVE HOME NURSING FOR THERAPY. IF YOU DECIDE TO DO OUTPATIENT PHYSICAL THERAPY, PLEASE SCHEDULE THIS 3 TIMES PER WEEK. * IF INCISION IS LEAKING THROUGH DRESSING, PLEASE CALL THE OFFICE . FOLLOW UP VISIT: If appointment is not already scheduled: Please call [facility] to make a follow-up appointment for 2 weeks after your surgery at . Pending Studies at Discharge: No Stand-Alone Forms: My [facility] Skilled Items Patient informed of condition?: Yes DNR: No (see instructions) Discharge Level of Care: Acute rehab Communicable Disease: No Discharge Prognosis: Improving Lines: None Urinary Catheter: No Medications and DC Order Prescriptions: New oxycodone 5 mg Tablet 5 - 10 mg PO Q4H PRN (Reason: pain) Qty: 30 RF: 0 Continued atorvastatin 20 mg tablet 20 mg PO QAM RF: 0 atenolol 100 mg tablet 100 mg PO QPM RF: 0 levothyroxine 75 mcg tablet 75 mcg PO QAM RF: 0 hydrochlorothiazide 25 mg tablet 25 mg PO QPM RF: 0 Discharge Orders: Discharge Order (Routine); Ordered 03/14/21 Ordered By: Tayo Robles Admission Data Admit Date/Time: 03/11/21 21:50 Attending Provider: Susie White Admit Provider: Jan العلي Primary Care Provider: Susie White Other Providers: Aiden Rhodes ; Konstantin Whitaker ; [facility] Other Interventions: Discharge Summary Assessment (RN) Last Done: 03/14/21 14:47 Supervising Physician Co-Signing Physician Notes Resident Physician Supervision Note: I independently interviewed and examined the patient and verified the vivar history and physical, reviewed labs and image studies and agree with resident Dr. Garcia findings and care plan. Resident Activity Tracking Resident Involvement: Resident Care Provided Care Provided: Adult Hospital Medicine
--- NOTE | 2021-03-16 19:22 | Billing Data ---
Date of Service March 16, 2021 Coding Level of Care Code 85332 Initial Inpt Care Lvl 3
== END 2021-03-14 16:55 | DRG 522 ==
LOC: ED 17:04 → SUATTDRO 21:50 → 3E 21:50
DX: Z79.899 Other long term (current) drug therapy; S42.291A Other displaced fracture of upper end of right humerus, initial encounter for closed fracture; W18.39XA Other fall on same level, initial encounter; E78.5 Hyperlipidemia, unspecified; I10 Essential (primary) hypertension; E03.9 Hypothyroidism, unspecified; Y93.01 Activity, walking, marching and hiking; Z66 Do not resuscitate; S72.091A Other fracture of head and neck of right femur, initial encounter for closed fracture; R29.6 Repeated falls; Z79.890 Hormone replacement therapy; R94.31 Abnormal electrocardiogram [ECG] [EKG]; D62 Acute posthemorrhagic anemia; Y99.8 Other external cause status; Z20.822 Contact with and (suspected) exposure to COVID-19